=== PATIENT | male | born 1950 | race Caucasian/White ===

== ENCOUNTER 2016-08-19 07:06 | Inpatient (IN) | payer MEDICARE, OTHER ==
--- NOTE | ~2016-08-19 | EKG ---
PATIENT: KEKE OCAMPO UNIT #: [id number] Ventricular Rate: 109 BPM Atrial Rate: 109 BPM P-R Interval: 198 ms QRS Duration: 82 ms Q-T Interval: 320 ms QTC Calculation(Bezet): 430 ms P [place]: 64 degrees Calculated R [place]: 72 degrees Calculated T [place]: 68 degrees Diagnosis Line: Sinus tachycardia Diagnosis Line: Otherwise normal ECG Diagnosis Line: When compared with ECG of 23-OCT-2014 05:45, Diagnosis Line: No significant change was found Diagnosis Line: Confirmed by BRIAN WILEY MD ([id number]) on 08/20/2016 Diagnosis Line: 6:16:30 PM INTERPRETING MD: INEZ ARIZMENDI
--- NOTE | ~2016-08-19 | US85 ---
[facility] A Service of [facility] & [facility] RADIOLOGY TEXT RESULTS PATIENT: KEKE OCAMPO LOCATION: [facility] : 49 UNIT #: [id number] AGE: [address]: Catrachito Michelle MD SEX: M ORDER DR: [id number] [facility] [address] [place], [place] [address] [id number] I MR#: [id number] Acc #: [id number] NAME: KEKE OCAMPO : 1950 SEX: M STUDY DATE/TIME: 08/20/2016 8:18 UNIT: A [facility] ROOM: [facility] STUDY DESCRIPTION: US LE Veins Unilat or Ltd Stdy Attending Physician: Royce Michelle M.D. Ordering Physician: Enoch Bates M.D. Primary Care Physician: Denis Negro M.D. MEDICAL IMAGING REPORT This report is preliminary unless electronic signature is present EXAM Left lower extremity venous duplex, 08/20/2016. HISTORY Left lower extremity pain and swelling for 3 days with shortness of breath. Evaluate for deep vein thrombosis. TECHNIQUE Venous ultrasound examination of the left lower extremity was performed using grayscale, spectral Doppler and color flow Doppler imaging. FINDINGS The examination is negative. There is no evidence of left lower extremity deep venous thrombus from the groin to the lower calf. Visualized greater saphenous vein is also patent. IMPRESSION Negative examination. No evidence of left lower extremity deep venous thrombosis. Dictated by... Armando Wall M.D. THIS IS AN ELECTRONICALLY VERIFIED REPORT Armando Wall M.D. at 08/21/2016 7:34 AM VANI/austyn TD: 08/20/2016 09:57 JOB #: [id number] MEDICAL IMAGING REPORT [facility] A Service of [facility] & [facility] RADIOLOGY TEXT RESULTS PATIENT: KEKE OCAMPO LOCATION: [facility] : 49 UNIT #: [id number] AGE: [address]: Catrachito Michelle MD SEX: M ORDER DR: MARK
--- NOTE | ~2016-08-19 | CT4 ---
[facility] Service of [facility] RADIOLOGY TEXT RESULTS PATIENT: KEKE OCAMPO LOCATION: [facility] : 49 UNIT #: [id number] AGE: [address]: Catrachito Michelle MD SEX: M ORDER DR: [id number] [facility] [address] [place], [place] [address] [id number] I MR#: [id number] Acc #: [id number] NAME: KEKE OCAMPO. : 1950 SEX: M STUDY DATE/TIME: 08/19/2016 14:52 UNIT: A PCU ROOM: [facility] STUDY DESCRIPTION: CT Abd and Pelv Wo Cont Attending Physician: Royce Michelle M.D. Referring Physician: Alfred Olivera M.D. Ordering Physician: Polo Vilchis M.D. Primary Care Physician: eDnis Negro M.D. MEDICAL IMAGING REPORT This report is preliminary unless electronic signature is present EXAM CT of abdomen and pelvis without contrast. DATE OF EXAM 08/19/2016 INDICATION Generalized abdominal pain for 3 days. TECHNIQUE Axial 5 mm images were obtained from the abdomen and pelvis without IV or oral contrast. NOTE: This CT exam was performed with one or more of the following radiation dose reduction techniques: automatic exposure control, adjustment of mA and/or kV according to patient size, and iterative reconstruction. FINDINGS There is minimal left base atelectasis. The liver, gallbladder, spleen, pancreas, adrenal glands and kidneys are normal in appearance. The aorta is normal in size and there is no adenopathy. The bowel is normal. Bladder is normal. The prostate gland is normal. Degenerative changes in the lumbar spine. IMPRESSION 1. No cause for the patient's abdomen pain is identified. 2. There are degenerative changes in the lumbar spine. 3. Otherwise, the study is normal. Dictated by... Vamshi Tony M.D. [facility] A Service [facility] RADIOLOGY TEXT RESULTS PATIENT: KEKE OCAMPO LOCATION: [facility] : 49 UNIT #: [id number] AGE: [address]: Catrachito Michelle MD SEX: M ORDER DR: THIS IS AN ELECTRONICALLY VERIFIED REPORT Vamshi Tony M.D. at 08/20/2016 10:07 AM MELVIN/michael TD: 08/19/2016 17:53 JOB #: [id number] MEDICAL IMAGING REPORT COPY
--- NOTE | ~2016-08-19 | EKG ---
PATIENT: KEKE OCAMPO UNIT #: [id number] Ventricular Rate: 63 BPM Atrial Rate: 63 BPM P-R Interval: 224 ms QRS Duration: 84 ms Q-T Interval: 428 ms QTC Calculation(Bezet): 437 ms P [place]: 55 degrees Calculated R [place]: 29 degrees Calculated T [place]: 76 degrees Diagnosis Line: Sinus rhythm with 1st degree A-V block Diagnosis Line: Otherwise normal ECG Diagnosis Line: When compared with ECG of 19-AUG-2016 08:01, Diagnosis Line: (unconfirmed) Diagnosis Line: Vent. rate has decreased BY 46 BPM Diagnosis Line: Confirmed by SAJI MERA MD ([id number]) on 08/22/2016 Diagnosis Line: 5:49:11 PM INTERPRETING MD: EDE ARIZMENDI
--- NOTE | ~2016-08-19 | CO ---
Unit #: [id number] #: [id number] Patient: KEKE OCAMPO [id number] [address] [place], [place] [address] [id number] I MR#: [id number] NAME: KEKE OCAMPO. ROOM: 309 Age: 66 Sex: M Admission Date: 08/19/2016 : 1950 Attending Physician: Royce Michelle M.D. Primary Care Physician: Denis Negro M.D. Consultation Date: 08/20/2016 CONSULTATION REPORT REASON FOR CONSULTATION Elevated creatinine level. HISTORY OF PRESENT ILLNESS The patient is a 66 years old male with known history of coronary artery disease, status post RCA stent in 2014, ejection fraction of 35% to 40%, who came in with cough and noted to have positive rapid flu A. Creatinine level on admission noted to be 2.5, with the creatinine level of 1.5 in 08/2014. The patient has no noted DAVID inhibitor/ARB. Proteinuria about 1.3 g and history of diabetes. PAST MEDICAL HISTORY Significant for hypertension; chronic systolic congestive heart failure; coronary artery disease, status post RCA stent placement; type 2 diabetes; chronic kidney disease, stage 3, baseline creatinine 1.5; history of hypertension; and history of peripheral neuropathy. PAST SURGICAL HISTORY Significant for left total knee replacement, back surgery several times, right elbow surgery, eye surgery. SOCIAL HISTORY The patient has several pack years history of smoking. Does not drink. FAMILY HISTORY Unremarkable for end-stage renal disease. Positive for coronary artery disease. ALLERGIES Morphine and codeine. CURRENT MEDICATIONS Include IV Zithromax, Rocephin, Neurontin 1600 mg at night, Ativan b.i.d., Lovenox, and Ambien. REVIEW OF SYSTEMS CVS: No chest pain. RESPIRATORY: Cough with minimal expectoration. GI: No diarrhea. No vomiting. : No hematuria. No dysuria. PHYSICAL EXAMINATION GENERAL: The patient is awake, alert, and oriented. VITAL SIGNS: Temperature is 98.9, heart rate is 65 per minute, blood Unit #: [id number] #: [id number] Patient: KEKE OCAMPO pressure is 151/88. HEENT: Head is atraumatic. Extraocular movements are intact. NECK: Supple. There is no elevation of the JVD. CHEST: Has basilar crackles. HEART: S1, S2 audible. There is no S3, no S4. ABDOMEN: Soft. There is no organomegaly. No guarding. No rigidity. No rebound tenderness. EXTREMITIES: There is trace edema. LAB COURIER: Motor system is intact. Cerebellar system is intact. DIAGNOSTIC STUDIES LABORATORY RESULTS: WBC is 4.6, H and H is 14.8 and 45.5 with a platelet count of 151. The pH is 7.33, pCO2 is 54, PO2 is 206. Rapid flu influenza A is positive. Sodium is 133, potassium is 4.5, CO2 of 27, chloride 94, BUN 36, creatinine 2.5, calcium 7.8, glucose 289. Urinalysis is otherwise bland. IMPRESSION 1. Acute kidney injury possible hemodynamic related increase in creatinine, expect to stabilize with gentle hydration. Less likely acute tubular necrosis secondary to underlying infection. 2. Chronic kidney disease, stage 3 likely secondary to diabetic nephropathy with non-nephrotic range proteinuria. Once he is stable and renal function is stabilized, we will like to start him on lisinopril before discharge. 3. Hypertension. 4. Diabetes. 5. Coronary artery disease, status post right coronary artery stent placement. 6. Rapid influenza A positive. 7. Proteinuria likely secondary to diabetic nephropathy. Dictated by... Jeff Avitia M.D. RA/chely TD: 08/20/2016 22:41 JOB #: [id number] CONSULTATION REPORT X Jeff Avitia MD X CONSULTATION REPORT
--- NOTE | ~2016-08-19 | NM69 ---
[facility] A Service [facility] RADIOLOGY TEXT RESULTS PATIENT: KEKE OCAMPO LOCATION: [facility] : 49 UNIT #: [id number] AGE: [address]: Catrachito Michelle MD SEX: M ORDER DR: [id number] [facility] [address]. [place], [place] [address] [id number] I MR#: [id number] Acc #: [id number] NAME: KEKE OCAMPO : 1950 SEX: M STUDY DATE/TIME: 08/20/2016 15:45 UNIT: C3A PCU ROOM: [facility] STUDY DESCRIPTION: NM Pulm Vent and Perf Attending Physician: Royce Michelle M.D. Ordering Physician: Jose Barrett M.D. Primary Care Physician: Denis Negro M.D. MEDICAL IMAGING REPORT This report is preliminary unless electronic signature is present EXAM VQ scan INDICATIONS Elevated D-dimer level. Shortness of air. Leg swelling and fatigue. History of hypertension. History of smoking. Symptoms started about 1 year ago. FINDINGS Ventilation images were obtained after administration of 36 mCi of technetium 99m - DTPA aerosol. Corresponding perfusion images were obtained after the IV administration of 6.0 mCi of technetium 99m - MAA. COMPARISON STUDIES PA and lateral chest x-ray is obtained the same day. FINDINGS Ventilation-perfusion tracer deposition is somewhat heterogeneous, more so on the ventilation images. There is clumping of radiopharmaceutical in the larger airways on the ventilation images as well. These images have the appearance of COPD. No VQ mismatches are seen, and there are no discrete segmental perfusion defects. Study is low probability for pulmonary embolism. IMPRESSION Low probability for pulmonary embolism. Dictated by... Xavier Parrish Jr., M.D. [facility] A [facility] RADIOLOGY TEXT RESULTS PATIENT: KEKE OCAMPO LOCATION: [facility] : 49 UNIT #: [id number] AGE: [address]: Catrachito Michelle MD SEX: M ORDER DR: THIS IS AN ELECTRONICALLY VERIFIED REPORT Xavier Parrish Jr., M.D. at 08/22/2016 12:54 AM COLBY/bhargav TD: 08/20/2016 18:44 JOB #: [id number] MEDICAL IMAGING REPORT COPY
--- NOTE | ~2016-08-19 | DS ---
Unit #: [id number] #: [id number] Patient: KEKE OCAMPO [id number] [facility]. [place], [place] [address] [id number] I MR#: [id number] NAME: KEKE OCAMPO. ROOM: 309 Age: 66 Sex: M Admission Date: 08/19/2016 : 1950 Discharge Date: 08/22/2016 Attending Physician: Royce Michelle M.D. Primary Care Physician: Denis Negro M.D. DISCHARGE SUMMARY ADMITTING DIAGNOSIS Shortness of air. DISCHARGE DIAGNOSES 1. Flu A pneumonitis. 2. Acute on chronic respiratory failure. 3. Coronary artery disease. 4. Sinus tachycardia. 5. Indeterminate troponin bump. [facility] 1. Dr. Bates. 2. Dr. Jeff Avitia - Renal. 66-year-old patient known to our service with history of coronary artery disease, presented with complaints of shortness of breath, cough for approximately three days, chills, possible fever. The patient had no chest pain, palpitations, syncope. The patient had some occasional dizziness. He had chronic swelling in his left leg. He has had PND, orthopnea. The patient is having sats down to the 80s. Brought to the emergency department for further evaluation. The patient had elevated BNP, flu A positive. However, patient was given a course of Tamiflu and was admitted to the hospital. HOSPITAL COURSE Flu pneumonitis: The patient was given treatment for influenzae. He had elevated cardiac enzymes. The patient had sinus tachycardia. Cardiology was consulted. The patient is having no significant shortness of air. However, he was persistently hypoxic. The patient was put on anticoagulation. His blood pressure medications were adjusted by cardiology and patient is ready to be discharged on the fourth. DISCHARGE MEDICATIONS Include: 1. Ventolin two puffs q.i.d. and p.r.n. 2. Possibly Lovenox subcu q.24 for two to three more days. 3. Gabapentin 1600 mg at bedtime. 4. Anoro one puff daily. 5. Ambien 10 mg daily. 6. Alprazolam 0.5 to 1 mm daily p.r.n. 7. Amlodipine 10 mg daily. 8. Metoprolol 25 mg twice daily. 9. Lipitor 10 mg daily. Unit #: [id number] #: [id number] Patient: KEKE OCAMPO 10. Hydralazine 20 mg. 11. Lisinopril 10 mg daily. 12. Humulin N 70 units twice daily. 13. Sliding scale as needed. 14. Multivitamin, one tablet daily. 15. Aspirin 81 mg daily. 16. Omnicef 300 mg p.o. b.i.d. for six days. 17. Prednisone 40 mg x3 days, 30 mg x3 days, 20 mg x3 days, 10 mg x3 days. The patient is to follow up with Dr. Bates's office in two to three weeks. Follow up with our office, with Dr. Manzanares's office, in two weeks, and to follow up with Dr. Avitia within three to four weeks as previously noted. DIET Renal diet, no concentrated sweets. ACTIVITY As tolerated. Dictated by... Jimmy Teague/guido TD: 08/25/2016 11:59 JOB #: [id number] DISCHARGE SUMMARY X Catrachito Michelle MD X DISCHARGE SUMMARY
--- NOTE | ~2016-08-19 | US77 ---
[facility] A Service of [facility] & [facility] RADIOLOGY TEXT RESULTS PATIENT: KEKE OCAMPO LOCATION: [facility] - : 49 UNIT #: [id number] AGE: [address]: Catrachito Michelle MD SEX: M ORDER DR: [id number] [facility] [address]. [place], [place] [address] [id number] I MR#: [id number] Acc #: [id number] NAME: KEKE OCAMPO : 1950 SEX: M STUDY DATE/TIME: 08/20/2016 13:56 UNIT: [address] ROOM: [facility] STUDY DESCRIPTION: US Kidney Bilateral Complete Attending Physician: Royce Michelle M.D. Ordering Physician: Ed Og Vilchis M.D. Primary Care Physician: Denis Negro M.D. MEDICAL IMAGING REPORT This report is preliminary unless electronic signature is present EXAM Renal ultrasound, 08/20/2016 HISTORY Acute renal insufficiency, abnormal renal function tests today, elevated BUN of 42, elevated creatinine of 1.7, abnormally low GFR of 42.9 FINDINGS The right kidney measures 10.5 cm, while the left kidney measures 12.5 cm in longitudinal dimensions. There is no evidence of hydronephrosis or nephrolithiasis. No cystic or solid mass lesions were seen on either kidney. There is normal renal cortical echogenicity. Images of the bladder are normal. Incidental note is made of fatty infiltration of the liver. IMPRESSION 1. Negative renal ultrasound. 2. Images of the bladder are normal. 3. Incidental note is made of fatty infiltration of the liver. Dictated by... Armando Wall M.D. THIS IS AN ELECTRONICALLY VERIFIED REPORT Armando Wall M.D. at 08/21/2016 7:35 AM VANI/teresa TD: 08/20/2016 20:14 JOB #: [id number] MEDICAL IMAGING REPORT COPY
--- NOTE | ~2016-08-19 | CR63 ---
[facility] A Service of [facility] RADIOLOGY TEXT RESULTS PATIENT: KEKE OCAMPO LOCATION: [facility] 309- : [birth year] UNIT #: [id number] AGE: [address]: Catrachito Michelle MD SEX: M ORDER DR: [id number] [facility] [address]. [place], [place] [address] [id number] I MR#: [id number] Acc #: [id number] NAME: KEKE OCAMPO : 1950 SEX: M STUDY DATE/TIME: 08/20/2016 7:57 UNIT: [address] ROOM: [facility] STUDY DESCRIPTION: CR Chest 2 View Attending Physician: Royce Michelle M.D. Ordering Physician: Royce Michelle M.D. Primary Care Physician: Denis Negro M.D. MEDICAL IMAGING REPORT This report is preliminary unless electronic signature is present EXAM Chest 2 views 08/20/2016 INDICATION Flu and pneumonia in a 66-year-old male, symptoms 3 days, cough, shortness of air. Diabetic, hypertension. TECHNIQUE 2 view chest was performed and compared with 08/19/2016. FINDINGS Cardiac silhouette borderline in size and stable. Vascularity is unremarkable. No effusion, pneumothorax or dense consolidation. Calcified granulomas are present. There is thoracic spondylosis. IMPRESSION Borderline to mild cardiomegaly unchanged. No new dense consolidation, effusion or pneumothorax. Dictated by... Dima Muhammad M.D. THIS IS AN ELECTRONICALLY VERIFIED REPORT Dima Muhammad M.D. at 08/20/2016 11:46 AM SARI/otto TD: 08/20/2016 10:47 JOB #: [id number] MEDICAL IMAGING REPORT COPY
--- NOTE | ~2016-08-19 | CO ---
Unit #: [id number] #: [id number] Patient: KEKE OCAMPO [id number] [facility] [address] [place], [place] [address] [id number] I MR#: [id number] NAME: KEKE OCAMPO. ROOM: 309 Age: 66 Sex: M Admission Date: 08/19/2016 : 1950 Attending Physician: Royce Michelle M.D. Primary Care Physician: Denis Negro M.D. Consultation Date: 08/19/2016 CONSULTATION REPORT REASON FOR CONSULTATION Cardiovascular management. HISTORY OF PRESENT ILLNESS This is a 66-year-old white male, known to Dr. Bates, with a past medical history of coronary artery disease, status post cardiac catheterization on 10/22/2014 at [place] which revealed a 30% to 40% stenosis in the proximal left circumflex followed by 70% to 75% stenosis. The patient had a 30% to 40% stenosis in the mid right coronary artery and 30% stenosis in the distal right coronary artery. Acute RV branch was minimally occluded at 99%. He underwent a percutaneous coronary intervention and drug-eluting stent in the right coronary artery. Additional past medical history includes hypertension, hyperlipidemia, insulin-dependent diabetes mellitus, acute kidney injury, chronic back pain, neuropathy, and reformed tobacco abuse. The patient presented to the emergency department with complaints of shortness of breath and a cough for the last 3 days. He has had some chills and possible fever, but he did not check his temperature at home. There are no reports of chest pain, palpitations, or syncope. He has had some occasional dizziness. He reports that he has chronic swelling in his left leg, which is unchanged. He does admit to PND and orthopnea. He has not been able to sleep for the last couple of nights. EMS was dispatched due to shortness of breath. According to documentation, the patient's saturations were low in the 80s. He was brought to the emergency department for further evaluation. In the emergency department, his temperature was a 100.9, pulse 122, respirations 22, blood pressure 113/70, and O2 saturation 86% on room air. Initial labs revealed a lactic acid of 2.2. White blood cell count was 7.9. Creatinine was elevated at 2.5 with a BUN of 36. The patient's previous creatinine was 1.2 to 1.4 in 2015. BNP was normal at 58. Cardiac enzymes were mildly elevated at 0.09 and 0.14. Influenza A was positive. Chest x-ray revealed some mild vascular congestion. EKG revealed sinus tachycardia with some low voltage and poor R-wave progression in the anterior leads. He was given normal saline, Tylenol, Rocephin, Zithromax, and Tamiflu. He was admitted for influenza and possible pneumonia. Cardiology was consulted for further management. PAST MEDICAL HISTORY 1. Coronary artery disease, status post cardiac catheterization on 10/22/[address] Bates at [place], which Unit #: [id number] #: [id number] Patient: KEKE OCAMPO revealed left main normal. LAD normal. Proximal left circumflex 30% to 40%, followed by 70% to 75%. Marginal branch is normal. Mid right coronary artery 30% to 40%. Acute RV 99%. Distal right coronary artery 30%. Left ventricular ejection fraction 55%. Status post PCI and drug-eluting stent in the right coronary artery. 2. Hypertension, not currently on medications. 3. Hyperlipidemia, not currently on medications. 4. Insulin-dependent diabetes mellitus. 5. Peripheral neuropathy. 6. Acute kidney injury in 10/2014. 7. Chronic back pain. 8. Abdominal hernia. 9. Reformed tobacco abuse. PAST SURGICAL HISTORY 1. Cardiac catheterization as noted above. 2. Multiple back surgeries. 3. Left total knee replacement. 4. Eye surgery. 5. Right elbow surgery. MEDICATIONS Aspirin 81 mg p.o. daily, multivitamin 1 tablet p.o. daily, Anoro Ellipta 62.5/25 mcg inhalation daily, gabapentin need to clarify dose, Ambien 10 mg p.o. at bedtime, alprazolam 1 mg p.o. daily, Humalog sliding scale, Novolin N 70 units subcu b.i.d. before breakfast and dinner. ALLERGIES Adverse reactions to morphine and codeine. SOCIAL HISTORY The patient lives in a private residence. He is a reformed smoker and states that he quit years ago, however, according to documentation in 2014 he was listed as an active smoker. There are no reports of alcohol or illicit drug use. FAMILY HISTORY Significant for coronary artery disease and congestive heart failure. REVIEW OF SYSTEMS A 12-point review of systems negative except for details as noted above in HPI. PHYSICAL EXAMINATION VITAL SIGNS: Temperature 98.3, pulse 87, blood pressure 99/79. CONSTITUTIONAL: This is a 66-year-old white male, in no acute distress. SKIN: Warm and dry. NECK: Supple. No jugular vein distention. No hepatojugular reflux. Normal carotid upstrokes. No carotid bruits auscultated. HEART: S1 and S2. Regular rate and rhythm, but tachycardic. No murmurs, rubs, or gallops. LUNGS: Bilateral breath sounds have scattered wheezes throughout. Respirations are even and nonlabored. No rales or rhonchi. ABDOMEN: Soft, but tender at the periumbilical area. Positive bowel sounds auscultated x4 quadrants. No ascites noted. EXTREMITIES: Left lower extremity has 1+ pitting edema. Right lower extremity has no edema. DP and PT pulses are 2+. Capillary refill is less than 2 seconds. Unit #: [id number] #: [id number] Patient: KEKE OCAMPO DIAGNOSTIC STUDIES LABORATORY RESULTS: White blood cell count 7.9, hemoglobin 15.8, hematocrit 47.2, and platelets 118. Sodium 133, potassium 4.3, chloride 94, CO2 of 27, BUN 36, creatinine 2.5, glucose 389. AST 46, ALT 32, alkaline phos 60. BNP 58. Influenza A positive. Troponin 0.14 and 0.09. INR 1.0. IMAGING STUDIES: Chest x-ray is documented as normal, but upon review of film, there is some mild vascular congestion. CARDIOVASCULAR STUDIES: EKG reveals sinus tachycardia with a ventricular rate of 109 beats per minute. Low-voltage QRS. Nonspecific ST-T wave changes. Poor R-wave progression in the anterior leads. QTc 430 msec. IMPRESSION 1. Acute hypoxic respiratory failure. 2. Influenza A. 3. Rule out pneumonia. 4. Left lower extremity edema, rule out deep vein thrombosis/pulmonary embolism. 5. Abdominal pain with history of hernia. 6. Acute kidney injury. Questionably on chronic kidney disease. 7. Coronary artery disease with history of percutaneous coronary intervention and stent in the right coronary artery in 10/2014. 8. Left ventricular ejection fraction 55%. 9. Sinus tachycardia. 10. Indeterminate troponin. 11. Hypertension, now with borderline hypotension. 12. Hyperlipidemia. 13. Diabetes mellitus type 2 insulin dependent, uncontrolled. PLAN 1. The patient presented to the hospital with complaints of shortness of breath and was found to have hypoxia. 2. He was placed on a BiPAP and subsequently at 12 liter oxymizer. He was started on antibiotics, fluids, and Tamiflu for influenza and possible pneumonia. 3. Cardiology was consulted for cardiovascular management. 4. There are no complaints of chest pain. The patient is hypoxic and has wheezing, but there is no other evidence of overt failure. 5. 2D echocardiogram has been ordered at the bedside to rule out pericardial effusion, as the patient's blood pressure is borderline low. 6. There are no complaints of chest pain. Initial cardiac enzymes were mildly elevated. We will trend enzymes and EKG. 7. D-dimer will be obtained as well as a Doppler of the left lower extremity. If labs or imaging are abnormal, the patient will need a V/Q scan as tolerated. 8. He will be started on renal dose of Lovenox in the meantime. 9. We will hold all antihypertensive medications to avoid hypotension. 10. We will obtain a CT of the abdomen due to complaints of active abdominal pain. 11. We will consult Renal due to elevated creatinine. We will hold off on additional IV fluids as the patient has some mild vascular congestion. We will need to watch volume status patiently and consider diuretics as needed. Unit #: [id number] #: [id number] Patient: KEKE OCAMPO Dictated by... Heena Foreman APRN for Jimmy Teague/chely TD: 08/21/2016 03:29 JOB #: [id number] CONSULTATION REPORT X X CONSULTATION REPORT
--- NOTE | ~2016-08-19 | EKG ---
PATIENT: KEKE OCAMPO UNIT #: [id number] Ventricular Rate: 61 BPM Atrial Rate: 61 BPM P-R Interval: 208 ms QRS Duration: 86 ms Q-T Interval: 404 ms QTC Calculation(Bezet): 406 ms P [place]: 60 degrees Calculated R [place]: 35 degrees Calculated T [place]: 31 degrees Diagnosis Line: Sinus rhythm with Premature atrial complexes Diagnosis Line: Otherwise normal ECG Diagnosis Line: When compared with ECG of 20-AUG-2016 05:56, Diagnosis Line: (unconfirmed) Diagnosis Line: Premature atrial complexes are now Present Diagnosis Line: Nonspecific T wave abnormality no longer evident Diagnosis Line: in Lateral leads Diagnosis Line: Confirmed by SAJI MERA MD ([id number]) on 08/22/2016 Diagnosis Line: 6:04:05 PM INTERPRETING MD: EDE ARIZMENDI
--- NOTE | ~2016-08-19 | CR72 ---
[facility] A Service of [facility] & [facility] RADIOLOGY TEXT RESULTS PATIENT: KEKE OCAMPO LOCATION: [facility] : [birth year] UNIT #: [id number] AGE: [address]: Catrachito Michelle MD SEX: M ORDER DR: [id number] [facility] [address]. [place], [place] [address] [id number] I MR#: [id number] Acc #: [id number] NAME: KEKE OCAMPO. : 1950 SEX: M STUDY DATE/TIME: 08/19/2016 7:12 UNIT: [facility] ROOM: [id number] STUDY DESCRIPTION: CR Chest Single View Portable Attending Physician: Royce Michelle M.D. Ordering Physician: Estefany Bustamante M.D. Primary Care Physician: Denis Negro M.D. MEDICAL IMAGING REPORT This report is preliminary unless electronic signature is present EXAM Portable chest 08/19/2016 INDICATION Dyspnea for 3 days. Shortness of air. COMPARISON 09/21/2014. FINDINGS A portable view of the chest was obtained. The heart size and vascularity are normal. The lungs are clear. The bones are unremarkable. IMPRESSION No active disease. Dictated by... Vamshi Tony M.D. THIS IS AN ELECTRONICALLY VERIFIED REPORT Vamshi Tony M.D. at 08/19/2016 2:05 PM MELVIN/otto TD: 08/19/2016 10:39 JOB #: [id number] MEDICAL IMAGING REPORT COPY
[~2016-08-19 07:06] MED LIST: AMBIEN; ASPIRIN81 M2 PO; AVALIDE 300-12.1 TAB; COREG; COZAAR100 MG PO; CRESTOR PO; CYMBALTA PO; FUROSEMIDE40 MG PO; GABITRIL4 MG; GABITRIL4 MG PO; HUMALOG100 U/M1 SUBQ; HYDROCODON-ACE1 EAC9 PO; LANTUS100 U/ML; LANTUS100 U/ML SUBQ; LEXAPRO; LIPITOR; LISINOPRIL; LORCET 10/650 T1 TAB; METFORMIN; METOPROLOL TAR25 MG PO; MULTI VITAMIN1 EACH PO; NOVOLOG FL100 UNIT/1; PLAVIX PO; POTASSIUM CHLO10 ME1 PO; SYMLIN; TAMIFLU75 M1 PO; TRICOR; VITAMIN D22000 UNIT PO; ZOLPIDEM TARTRA10 MG PO
[2016-08-19 07:23] LABS: BASOPHIL# 0.1 X10e3 (0-0.3); HEMATOCRIT 47.2 % (38.0-50.0); HEMOGLOBIN 15.8 gm/dL (13.0-16.0); LYMPHOCYTE% 12.6 % (17.0-45.0); MEAN CORPUSCULAR HEMOGLOBIN 30.5 PG (28-34); MEAN CORPUSCULAR HGB CONC 33.5 g/dL (30-36); MEAN PLATELET VOLUME 9.6 FL (6.5-11.5); MONOCYTE# 1.5 X10e3 (0-1.0); MONOCYTE% 18.5 % (3.0-12.0); NEUTROPHIL# 5.4 X10e3 (1.5-7.1); NEUTROPHIL% 67.9 % (40-75); PLATELET COUNT 118 X10e3 (140-420); RED BLOOD COUNT 5.19 X10e (3.90-5.60); RED CELL DISTRIBUTION WIDTH 13.7 % (11.0-15.5); WHITE BLOOD COUNT 7.9 X10e3 (4.0-10.5)
[2016-08-19 07:26] LABS: ARTERIAL BLD GAS O2 SATURATION 99.1 % (90.0-100.0); ARTERIAL BLOOD GAS CARBOXY HB 0.5 %sat (0.0-9.0); ARTERIAL BLOOD GAS HCO3 25.6 mmol/L; ARTERIAL BLOOD GAS MET HB 0.5 %sat (0.0-2.0); ARTERIAL BLOOD GAS PCO2 39.9 mmHg (35.0-45.0); ARTERIAL BLOOD GAS pH 7.416 (7.350-7.450)
[2016-08-19 07:28] LABS: ARTERIAL BLOOD GAS ALLEN TEST Y; ARTERIAL BLOOD GAS ART SITE LEFT RADIAL; ARTERIAL BLOOD GAS DELIVERY BIPAP; ARTERIAL DRAW? YES
[2016-08-19 07:28] LABS: DIFF IND NO
[2016-08-19 07:37] LABS: PARTIAL THROMBOPLASTIN TIME 28.6 SECONDS (23.5-31.3); PROTHROMBIN TIME (PATIENT) 10.6 SECONDS (9.6-11.5)
[2016-08-19 08:03] LABS: ALBUMIN SERUM 3.1 g/dL (3.5-5.0); BILIRUBIN, DIRECT 0.2 mg/dL (0.0-0.2); BILIRUBIN,INDIRECT 0.4 mg/dL (0.0-0.9); BILIRUBIN,TOTAL 0.6 mg/dL (0.2-2.0); BUN/CREATININE RATIO 14.4; CALCIUM SERUM 7.8 mg/dL (8.4-10.2); CREATININE SERUM 2.5 mg/dL (0.6-1.4); GLOM FILT RATE Estimated 27.5 mL/min (>60); POTASSIUM 4.3 mmol/L (3.5-5.1); PROTEIN TOTAL SERUM 6.7 g/dL (6.0-8.3)
[2016-08-19 08:07] LABS: POC - CKMB 3.3 ng/mL (0.0-7.9); POC - TROPONIN 0.14 ng/mL (<=0.05)
[2016-08-19] MEDS ORDERED: ASPIRIN81 MG PO (08:13)
[2016-08-19] MEDS ORDERED: ANORO ELLIPTA1 EACH INH (08:14)
[2016-08-19] MEDS ORDERED: AMBIEN10 MG PO (08:14)
[2016-08-19] MEDS ORDERED: MULTI VITAMIN1 EACH PO (08:14)
[2016-08-19] MEDS ORDERED: GABAPENTIN800 MG PO (08:14)
[2016-08-19] MEDS ORDERED: HUMALOG100 U/ML (08:15)
[2016-08-19] MEDS ORDERED: ALPRAZOLAM1 MG PO (08:15)
[2016-08-19] MEDS ORDERED: NOVOLIN N100 UNIT/1 SUBQ (08:16)
[2016-08-19 08:19] LABS: INFLUENZA A POS (NEG); INFLUENZA B NEG (NEG)
[2016-08-19 09:32] LABS: POC - CKMB 2.8 ng/mL (0.0-7.9); POC - TROPONIN 0.09 ng/mL (<=0.05)
[2016-08-19 19:41] LABS: %MB 0.4 % (0.0-4.0); MB 6.3 ng/ml
[2016-08-20 00:26] LABS: URINE APPEARANCE CLEAR; URINE BILIRUBIN NEG (NEG); URINE BLOOD 2+ (NEG); URINE COLOR YELLOW; URINE GLUCOSE >1000 MG/DL (NEG); URINE KETONE TRACE (NEG); URINE LEUKOCYTE ESTERASE NEG (NEG); URINE NITRATE NEG (NEG); URINE PROTEIN 2+ (NEG); URINE UROBILINOGEN 0.2 MG/DL (NEG)
[2016-08-20 00:29] LABS: U HYALINE CASTS AUWI 0-2 /[LPF]; URBCS1 AUWI 0-2 /[HPF] (0-2); URINE BACTERIA AUWI NEG (NEGATIVE); URINE SQUAMOUS EPITHELIAL CELL NONE SEEN /[HPF]; UWBCS1 AUWI 0-2 (0-5)
[2016-08-20 00:30] LABS: CULTURE INDICATED? NO
[2016-08-20 00:52] LABS: CREATININE,RANDOM URINE 58 mg/dL; SODIUM URINE RANDOM 30 mmol/L
[2016-08-20 01:10] LABS: TOTAL PROTEIN,RANDOM URINE 87 mg/dl (<10)
[2016-08-20 03:14] LABS: %MB 0.6 % (0.0-4.0); MB 10.1 ng/ml
[2016-08-20 04:46] LABS: ARTERIAL BLOOD GAS CARBOXY HB 0.1 %sat (0.0-9.0); ARTERIAL BLOOD GAS HCO3 28.5 mmol/L; ARTERIAL BLOOD GAS MET HB 0.6 %sat (0.0-2.0)
[2016-08-20 05:17] LABS: ARTERIAL BLOOD GAS ART SITE LEFT BRACHIAL; ARTERIAL BLOOD GAS PCO2 54.1 mmHg (35.0-45.0); ARTERIAL DRAW? YES
[2016-08-20 07:38] LABS: BASOPHIL# 0.1 X10e3 (0-0.3); BASOPHIL% 1.2 % (0-2.5); HEMATOCRIT 45.5 % (38.0-50.0); HEMOGLOBIN 14.8 gm/dL (13.0-16.0); LYMPHOCYTE# 0.9 X10e3 (1.0-3.5); LYMPHOCYTE% 18.5 % (17.0-45.0); MEAN CELL VOLUME 92.4 FL (83-96); MEAN CORPUSCULAR HEMOGLOBIN 30.2 PG (28-34); MEAN CORPUSCULAR HGB CONC 32.6 g/dL (30-36); MEAN PLATELET VOLUME 8.3 FL (6.5-11.5); MONOCYTE# 0.6 X10e3 (0-1.0); MONOCYTE% 13.6 % (3.0-12.0); NEUTROPHIL# 3.1 X10e3 (1.5-7.1); NEUTROPHIL% 66.7 % (40-75); PLATELET COUNT 151 X10e3 (140-420); RED BLOOD COUNT 4.92 X10e (3.90-5.60); RED CELL DISTRIBUTION WIDTH 13.7 % (11.0-15.5); WHITE BLOOD COUNT 4.6 X10e3 (4.0-10.5)
[2016-08-20 07:45] LABS: DIFF IND NO
[2016-08-20 08:38] LABS: BUN/CREATININE RATIO 24.7; CALCIUM SERUM 7.3 mg/dL (8.4-10.2); CREATININE SERUM 1.7 mg/dL (0.6-1.4); GLOM FILT RATE Estimated 42.9 mL/min (>60); POTASSIUM 5.1 mmol/L (3.5-5.1)
[2016-08-21 12:12] LABS: BASOPHIL# 0.1 X10e3 (0-0.3); EOSINOPHIL# 0.1 X10e3 (0-0.7); EOSINOPHIL% 2.6 % (0.0-7.0); HEMATOCRIT 45.6 % (38.0-50.0); HEMOGLOBIN 15.1 gm/dL (13.0-16.0); LYMPHOCYTE# 1.2 X10e3 (1.0-3.5); LYMPHOCYTE% 22.3 % (17.0-45.0); MEAN CELL VOLUME 91.2 FL (83-96); MEAN CORPUSCULAR HEMOGLOBIN 30.2 PG (28-34); MEAN CORPUSCULAR HGB CONC 33.1 g/dL (30-36); MEAN PLATELET VOLUME 9.4 FL (6.5-11.5); MONOCYTE# 0.6 X10e3 (0-1.0); MONOCYTE% 12.4 % (3.0-12.0); NEUTROPHIL# 3.2 X10e3 (1.5-7.1); NEUTROPHIL% 61.7 % (40-75); RED BLOOD COUNT 5.01 X10e (3.90-5.60); RED CELL DISTRIBUTION WIDTH 13.6 % (11.0-15.5); WHITE BLOOD COUNT 5.2 X10e3 (4.0-10.5)
[2016-08-21 12:33] LABS: CALCIUM SERUM 8.2 mg/dL (8.4-10.2); CREATININE SERUM 1.5 mg/dL (0.6-1.4); GLOM FILT RATE Estimated 49.6 mL/min (>60); POTASSIUM 4.7 mmol/L (3.5-5.1)
[2016-08-21 12:44] LABS: DIFF IND YES
[2016-08-21 12:46] LABS: PLATELET ESTIMATE DECREASED (NORMAL)
[2016-08-21 12:47] LABS: RBC NORMAL YES
[2016-08-22 05:48] LABS: HEMATOCRIT 45.2 % (38.0-50.0); HEMOGLOBIN 14.9 gm/dL (13.0-16.0); MEAN CELL VOLUME 90.7 FL (83-96); MEAN PLATELET VOLUME 8.7 FL (6.5-11.5); RED BLOOD COUNT 4.98 X10e (3.90-5.60); RED CELL DISTRIBUTION WIDTH 13.2 % (11.0-15.5); WHITE BLOOD COUNT 3.8 X10e3 (4.0-10.5)
[2016-08-22 07:25] LABS: BUN/CREATININE RATIO 21.42; CALCIUM SERUM 8.6 mg/dL (8.4-10.2); CREATININE SERUM 1.4 mg/dL (0.6-1.4); GLOM FILT RATE Estimated 53.7 mL/min (>60)
[2016-08-22 07:49] LABS: POTASSIUM 5.5 mmol/L (3.5-5.1)
[2016-08-22] MEDS ORDERED: ANORO ELLIPTA1 EACH INH (16:20)
[2016-08-22] MEDS ORDERED: PREDNISOLONE5 MG PO (16:21)
[2016-08-22] MEDS ORDERED: OMNICEF300 MG PO (16:22)
[2016-08-22] MEDS ORDERED: LISINOPRIL10 MG PO (16:22)
[2016-08-22] MEDS ORDERED: LIPITOR20 MG PO (16:24)
[2016-08-22] MEDS ORDERED: METOPROLOL TART25 MG PO (16:24)
[2016-08-22] MEDS ORDERED: NORVASC10 MG PO (16:24)
[2016-08-22] MEDS ORDERED: ALBUTEROL17 GM INH (16:26)
[2016-08-22 17:45] LABS: BLOOD UREA NITROGEN 33 mg/dL (9-23); CALCIUM SERUM 8.4 mg/dL (8.4-10.2); CARBON DIOXIDE 27 mmol/L (22-31); CHLORIDE 97 mmol/L (100-111); CREATININE SERUM 1.2 mg/dL (0.6-1.4); GLOM FILT RATE Estimated ABOVE60 mL/min (>60); GLUCOSE FASTING 411 mg/dL (70-110); POTASSIUM 4.4 mmol/L (3.5-5.1)
[2016-08-22 17:47] LABS: SODIUM 130 mmol/L (135-145)
[2016-08-22 19:24] LABS: SPE A1GLOB (PNL) 0.4 g/dL (0.2-0.3); SPE A2GLOB (PNL) 1.1 g/dL (0.5-0.9); SPE ALB (PNL) 2.6 g/dL (3.8-4.8); SPE BETA 1 GLOBULIN 0.3 g/dL (0.4-0.6); SPE BETA 2 GLOBULIN 0.4 g/dL (0.2-0.5); SPE GAMMA (PNL) 0.8 g/dL (0.8-1.7); SPETP (PNL) 5.5 g/dL (6.1-8.1)
[2016-08-23 14:55] LABS: UPE RAND ALPHA1 GLOB 6 % (()); UPE RAND PROT/CREAT 3176 (22-128); UPE RANDOM ALB (PNL) 69 % (()); UPE RANDOM ALPHA 2 GLOB 5 % (()); UPE RANDOM BETA GLOB 9 % (()); UPE RANDOM CREATININE 74.3 mg/dL (20-370); UPE RANDOM GAMMA GLOB 10 % (()); UPE RANDOM TOTAL PROTEIN (PNL) 236 mg/dL (5-25)
[2016-08-26 12:36] LABS: HISTO AG URINE SPECIMEN Urine (())
== END 2016-08-22 18:07 | disposition home or self-care (01) | DRG 193 ==
LOC: CED 07:06 → CEDOF 08:45 → C3A PCU 17:51
PROVIDERS: Emergency Medicine; Internal Medicine Nephrology; Internal Medicine Pulmonary Disease; Nurse Practitioner Family
DX: J11.00 Influenza due to unidentified influenza virus with unspecified type of pneumonia (principal); J96.21 Acute and chronic respiratory failure with hypoxia; N17.9 Acute kidney failure, unspecified; I13.0 Hypertensive heart and chronic kidney disease with heart failure and stage 1 through stage 4 chronic kidney disease, or unspecified chronic kidney disease; I50.22 Chronic systolic (congestive) heart failure; I25.10 Atherosclerotic heart disease of native coronary artery without angina pectoris; Z95.5 Presence of coronary angioplasty implant and graft; E11.21 Type 2 diabetes mellitus with diabetic nephropathy; E11.22 Type 2 diabetes mellitus with diabetic chronic kidney disease; N18.3 Chronic kidney disease, stage 3 (moderate); E78.5 Hyperlipidemia, unspecified; G62.9 Polyneuropathy, unspecified; R80.9 Proteinuria, unspecified; R00.0 Tachycardia, unspecified; Z82.49 Family history of ischemic heart disease and other diseases of the circulatory system; Z79.82 Long term (current) use of aspirin; Z79.4 Long term (current) use of insulin; Z96.652 Presence of left artificial knee joint; E87.5 Hyperkalemia; E66.9 Obesity, unspecified; J20.8 Acute bronchitis due to other specified organisms
CPT/HCPCS: 36415; 36600; 71010; 71020; 74176; 76770; 78582; 80048; 80061; 80076; 81003; 82550; 82553; 82570; 82803; 82947; 83605; 83880; 84132; 84156; 84165; 84166; 84300; 84443; 84484; 85025; 85027; 85379; 85610; 85730; 86335; 87040; 87070; 87385; 87633; 87804; 89190; 93005; 93306; 93971; 94640; 94660; 94760; 96365; 96371; 99285; A9540; A9567; J0456; J0696; J1650; J1815; J2920

== ENCOUNTER 2017-01-23 15:27 | Emergency (ER) | payer MEDICARE, OTHER ==
--- NOTE | ~2017-01-23 | EKG ---
PATIENT: KEKE OCAMPO UNIT #: [id number] Ventricular Rate: 77 BPM Atrial Rate: 77 BPM P-R Interval: 190 ms QRS Duration: 90 ms Q-T Interval: 394 ms QTC Calculation(Bezet): 445 ms P [place]: 40 degrees Calculated R [place]: 56 degrees Calculated T [place]: 52 degrees Diagnosis Line: Normal sinus rhythm Diagnosis Line: Normal ECG Diagnosis Line: When compared with ECG of 22-AUG-2016 07:48, Diagnosis Line: Premature atrial complexes are no longer Present Diagnosis Line: Confirmed by SAJI MERA MD ([id number]) on 01/26/2017 Diagnosis Line: 7:00:49 AM INTERPRETING MD: EDE ARIZMENDI
--- NOTE | ~2017-01-23 | CR72 ---
[facility] A Service of [facility] RADIOLOGY TEXT RESULTS PATIENT: KEKE OCAMPO LOCATION: [facility] : [birth year] UNIT #: [id number] AGE: [address]: Tomy Valadez MD SEX: M ORDER DR: [id number] [facility] [address] [place], [place] [address] [id number] E MR#: [id number] Acc #: [id number] NAME: KEKE OCAMPO. : 1950 SEX: M STUDY DATE/TIME: 01/23/2017 16:30 UNIT: [facility] ROOM: STUDY DESCRIPTION: CR Chest Single View Portable Attending Physician: Tomy Valadez M.D. Ordering Physician: Tomy Valadez M.D. Primary Care Physician: No Primary Care Physician MEDICAL IMAGING REPORT This report is preliminary unless electronic signature is present EXAM Portable chest HISTORY A 66-year-old male with left leg weakness left arm weakness, difficulty speaking, onset today. COMPARISON 08/20/2016 FINDINGS Portable view chest demonstrates cardiomegaly. Prominence of the pulmonary vascular interstitium with peribronchial cuffing and some probable per Dung B lines could reflect underlying CHF. This could also represent background interstitial disease and fibrosis though does appear new or increased from August study. No dense consolidation identified. Probable small right pleural effusion. Mild cardiomegaly. Mediastinum, great vessels unremarkable. Postsurgical changes of the lower cervical spine. No pneumothorax. Dictated by... Clarke Huang M.D. THIS IS AN ELECTRONICALLY VERIFIED REPORT Clarke Huang M.D. at 01/23/2017 9:39 PM VIOLET/bhargav TD: 01/23/2017 19:03 JOB #: [id number] MEDICAL IMAGING REPORT [facility] A Service [facility] RADIOLOGY TEXT RESULTS PATIENT: KEKE OCAMPO LOCATION: [facility] : [birth year] UNIT #: [id number] AGE: [address]: Tomy Valadez MD SEX: M ORDER DR: Page 1 of 1 COPY
--- NOTE | ~2017-01-23 | CT18 ---
[facility] A Service [facility] RADIOLOGY TEXT RESULTS PATIENT: KEKE OCAMPO LOCATION: [facility] : 49 UNIT #: [id number] AGE: [address]: Tomy Valadez MD SEX: M ORDER DR: [id number] [facility] [address] [place], [place] [address] [id number] E MR#: [id number] [facility] #: [id number] NAME: KEKE OCAMPO. : 1950 SEX: M STUDY DATE/TIME: 01/23/2017 15:52 UNIT: [facility] ROOM: STUDY DESCRIPTION: CT Angio Head Stroke Attending Physician: Tomy Valadez M.D. Ordering Physician: Tomy Valadez M.D. Primary Care Physician: No Primary Care Physician MEDICAL IMAGING REPORT This report is preliminary unless electronic signature is present EXAM CT angiogram of head and neck with IV contrast. HISTORY Left side weakness and aphasia today. TECHNIQUE This CT exam was performed with one or more of the following radiation dose reduction techniques: automatic exposure control, adjustment of mA and/or kV according to patient size, and iterative reconstruction. FINDINGS IV contrast enhanced CT angiogram of the head and neck was performed with 3-D reconstructions. CT ANGIOGRAM NECK: Moderate partly calcified atherosclerotic plaque in the proximal mid and distal left common carotid artery with up to 60% luminal diameter stenosis. Mild calcified atherosclerotic plaque in the carotid bulbs and proximal internal carotid arteries bilaterally with approximately 40% stenosis in the proximal right internal carotid artery by NASCET criteria, and less than 20% stenosis in the proximal left internal carotid artery. Both vertebral arteries are patent with no focal stenosis identified. Multilevel degenerative and postoperative changes in the cervical spine. CT ANGIOGRAM BRAIN: The intracranial internal carotid arteries are patent with only mild atherosclerotic calcified plaque in the cavernous carotid arteries bilaterally. The intracranial vertebral arteries and basilar artery are also widely patent. The anterior cerebral, middle cerebral and posterior cerebral arteries are patent with no focal stenosis. Tiny right posterior communicating artery. No aneurysm or vascular malformation is identified. No major vessel occlusion. [facility] A Service [facility] RADIOLOGY TEXT RESULTS PATIENT: KEKE OCAMPO LOCATION: [facility] #: [id number] : [birth year] UNIT #: [id number] AGE: [address]: Tomy Valadez MD SEX: M ORDER DR: IMPRESSION 1. No major intracranial arterial stenosis or occlusion. 2. Approximately 60% maximal stenosis in the left common carotid artery secondary to partly calcified atherosclerotic plaque. 3. Approximately 40% stenosis in the proximal right internal carotid artery by NASCET criteria. 4. Both vertebral arteries are patent with no focal stenosis. 5. Incidental very small right posterior communicating artery. Dictated by... Graham Caceres M.D. THIS IS AN ELECTRONICALLY VERIFIED REPORT Graham Caceres M.D. at 01/23/2017 8:43 PM KENDRA/michael TD: 01/23/2017 19:16 JOB #: [id number] MEDICAL IMAGING REPORT Page 1 of 1 COPY
--- NOTE | ~2017-01-23 | CT24 ---
[facility] A Service of [facility] RADIOLOGY TEXT RESULTS PATIENT: KEKE OCAMPO LOCATION: [facility] : [birth year] UNIT #: [id number] AGE: [address]: Tomy Valadez MD SEX: M ORDER DR: [id number] [facility] [address] [place], [place] [address] [id number] E MR#: [id number] Acc #: [id number] NAME: KEKE OCAMPO : 1950 SEX: M STUDY DATE/TIME: 01/23/2017 15:52 UNIT: [facility] ROOM: STUDY DESCRIPTION: CT Angio Neck Stroke Attending Physician: Tomy Valadez M.D. Ordering Physician: Tomy Valadez M.D. Primary Care Physician: No Primary Care Physician MEDICAL IMAGING REPORT This report is preliminary unless electronic signature is present EXAM CT angiogram of the neck with IV contrast. HISTORY Left side weakness and aphasia today. TECHNIQUE This CT exam was performed with one or more of the following radiation dose reduction techniques: automatic exposure control, adjustment of mA and/or kV according to patient size, and iterative reconstruction. FINDINGS Please see CTA head neck performed 01/23/2017 for results. Dictated by... Graham Caceres M.D. THIS IS AN ELECTRONICALLY VERIFIED REPORT Graham Caceres M.D. at 01/23/2017 8:45 PM KENDRA/michael TD: 01/23/2017 19:21 JOB #: [id number] MEDICAL IMAGING REPORT Page 1 of 1 COPY
--- NOTE | ~2017-01-23 | CT72 ---
[facility] A Service [facility] RADIOLOGY TEXT RESULTS PATIENT: KEKE OCAMPO LOCATION: [facility] : 49 UNIT #: [id number] AGE: [address]: Tomy Valadez MD SEX: M ORDER DR: [id number] [facility] [address] [place], [place] [address] [id number] E MR#: [id number] Acc #: [id number] NAME: KEKE OCAMPO : 1950 SEX: M STUDY DATE/TIME: 01/23/2017 15:39 UNIT: [facility] ROOM: STUDY DESCRIPTION: CT Head Wo Contrast Stroke Attending Physician: Tomy Valadez M.D. Ordering Physician: Tomy Valadez M.D. Primary Care Physician: No Primary Care Physician MEDICAL IMAGING REPORT This report is preliminary unless electronic signature is present EXAM Head CT, 01/23 at 15:39 INDICATIONS Left side weakness, aphasia that started at 02:20 this afternoon. Fall 4 days ago. FINDINGS Axial images were obtained from the base to the vertex without contrast. No comparison. This CT exam was performed with one or more of the following radiation dose reduction techniques: automatic exposure control, adjustment of mA and/or kV according to patient size, and iterative reconstruction. The study is motion degraded. No evidence of acute infarct or hemorrhage. No masses. No skull fracture. There is atherosclerotic disease in the carotid siphons. There are mucous retention cysts with chronic mucosal thickening in the maxillary sinuses. IMPRESSION No acute findings in the brain. Chronic changes in the maxillary sinuses. Dictated by... Xavier Parrish Jr., M.D. THIS IS AN ELECTRONICALLY VERIFIED REPORT Xavier Parrish Jr., M.D. at 01/24/2017 8:38 AM COLBY/bhargav TD: 01/23/2017 18:14 [facility] A Service of [facility] RADIOLOGY TEXT RESULTS PATIENT: KEKE OCAMPO LOCATION: [facility] : 49 UNIT #: [id number] AGE: [address]: Tomy Valadez MD SEX: M ORDER DR: JOB #: [id number] MEDICAL IMAGING REPORT Page 1 of 1 COPY
[~2017-01-23 15:27] MED LIST changes: +ALBUTEROL17 GM INH; +ALPRAZOLAM1 MG PO; +AMBIEN10 MG PO; +ANORO ELLIPTA1 EACH INH; +ASPIRIN81 MG PO; +GABAPENTIN800 MG PO; +HUMALOG100 U/ML; +LIPITOR20 MG PO; +LISINOPRIL10 MG PO; +METOPROLOL TART25 MG PO; +NORVASC10 MG PO; +NOVOLIN N100 UNIT/1 SUBQ; +OMNICEF300 MG PO; +PREDNISOLONE5 MG PO
[2017-01-23 16:09] LABS: INR 0.9; PARTIAL THROMBOPLASTIN TIME 26.3 SECONDS (23.5-31.3); PROTHROMBIN TIME (PATIENT) 10.3 SECONDS (10.0-11.7)
[2017-01-23 16:10] LABS: BASOPHIL# 0.2 X10e3 (0-0.3); BASOPHIL% 2.8 % (0-2.5); DIFF IND NO; EOSINOPHIL# 0.4 X10e3 (0-0.7); EOSINOPHIL% 7.4 % (0.0-7.0); HEMATOCRIT 44.1 % (38.0-50.0); HEMOGLOBIN 14.4 gm/dL (13.0-16.0); LYMPHOCYTE# 1.5 X10e3 (1.0-3.5); LYMPHOCYTE% 25.1 % (17.0-45.0); MEAN CELL VOLUME 92.2 FL (83-96); MEAN CORPUSCULAR HGB CONC 32.5 g/dL (30-36); MEAN PLATELET VOLUME 8.1 FL (6.5-11.5); MONOCYTE# 0.6 X10e3 (0-1.0); MONOCYTE% 10.9 % (3.0-12.0); NEUTROPHIL# 3.1 X10e3 (1.5-7.1); NEUTROPHIL% 53.8 % (40-75); PLATELET COUNT 198 X10e3 (140-420); RED BLOOD COUNT 4.79 X10e (3.90-5.60); WHITE BLOOD COUNT 5.8 X10e3 (4.0-10.5)
[2017-01-23 16:16] LABS: POC - CREATININE 1.39 mg/dL (0.64-1.27)
[2017-01-23 16:24] LABS: ALBUMIN SERUM 3.8 g/dL (3.5-5.0); BILIRUBIN, DIRECT 0.1 mg/dL (0.0-0.2); BILIRUBIN,INDIRECT 0.4 mg/dL (0.0-0.9); BILIRUBIN,TOTAL 0.5 mg/dL (0.2-2.0); BUN/CREATININE RATIO 16.52; CALCIUM SERUM 8.9 mg/dL (8.4-10.2); CREATININE SERUM 2.3 mg/dL (0.6-1.4); GLOM FILT RATE Estimated 28.3 mL/min (>60); POTASSIUM 4.5 mmol/L (3.5-5.1)
[2017-01-23 16:32] LABS: POC - CKMB 5.2 ng/mL (0.0-7.9); POC - TROPONIN <0.05 ng/mL (<=0.05)
[2017-01-23 17:34] LABS: POC - CKMB 5.6 ng/mL (0.0-7.9); POC - TROPONIN <0.05 ng/mL (<=0.05)
== END 2017-01-23 18:26 | disposition home or self-care (01) ==
LOC: CED 15:27
PROVIDERS: Emergency Medicine
DX: I13.0 Hypertensive heart and chronic kidney disease with heart failure and stage 1 through stage 4 chronic kidney disease, or unspecified chronic kidney disease (principal); E11.22 Type 2 diabetes mellitus with diabetic chronic kidney disease; N18.9 Chronic kidney disease, unspecified; I50.9 Heart failure, unspecified; Z86.73 Personal history of transient ischemic attack (TIA), and cerebral infarction without residual deficits; Z79.82 Long term (current) use of aspirin; Z79.4 Long term (current) use of insulin; Z79.899 Other long term (current) drug therapy
CPT/HCPCS: 36415; 70450; 70496; 70498; 71010; 80048; 80076; 82553; 82565; 82947; 84484; 85025; 85610; 85730; 93005; 96360; 99285; Q9967

== ENCOUNTER → 2017-02-12 | Outpatient (CLI) | payer MEDICARE, OTHER ==
--- NOTE | ~2017-02-12 | US5 ---
[facility] A Service of [facility] RADIOLOGY TEXT RESULTS PATIENT: ALBERTO OCAMPO LOCATION: [facility] : 49 UNIT #: [id number] AGE: [address]: Bonnie Fuchs APRN SEX: M ORDER DR: [id number] [facility] [address] [place], [place] [address] [id number] O MR#: [id number] Acc #: [id number] NAME: ALBERTO OCAMPO : 1950 SEX: M STUDY DATE/TIME: 02/12/2017 9:12 UNIT: [facility] ROOM: STUDY DESCRIPTION: US Abdominal Complete Attending Physician: Bonnie Fuchs A.P.R.N. Referring Physician: Bonnie Fuchs A.P.R.N. Ordering Physician: Bonnie Fuchs A.P.R.N. Primary Care Physician: Margret Primary Care Physician MEDICAL IMAGING REPORT This report is preliminary unless electronic signature is present EXAM Ultrasound of the abdomen. INDICATIONS Abdominal distension for years not associated with any pain. Patient was noted to have mild lumps in the right upper quadrant and above the umbilicus on physical exam. TECHNIQUE Ferguson-scale, color Doppler and spectral Doppler waveform analysis was performed through the abdomen including the area of concern appeared to the umbilicus. FINDINGS The patient's liver does appear enlarged measuring up to 18.6 cm in craniocaudal dimensions, although I don't see any evidence of intra or extrahepatic biliary dilatation. No focal hepatic lesions are seen. No definite hepatic steatosis is identified. There is limited visualization of the aorta. Visualized segment measures up to about 2.7 cm in diameter, which is larger than on a prior CT from August of 2016. I suspect the discrepancy is probably due to differences in technique. Inferior vena cava appears to be patent, pancreas cannot be seen due to overlying bowel gas. Both kidneys are normal in appearance. No solid or cystic renal masses are seen and there is no hydronephrosis. No stones or sludge are seen within the gallbladder. The spleen appears within normal limits. Images through the area of concern do appear to show a bowel containing supraumbilical hernia. On prior study, patient did have a small fat-containing umbilical hernia, but again no bowel was seen within it. IMPRESSION 1. Within the area concern, the patient does appear to have a bowel-containing ventral hernia. Patient did have a small umbilical hernia on prior CT from August 19, 2016, but it did not contain any STS. [facility] A Service of [facility] RADIOLOGY TEXT RESULTS PATIENT: ALBERTO OCAMPO LOCATION: [facility] : 48 UNIT #: [id number] AGE: [address]: Bonnie Fuchs APRN SEX: M ORDER DR: bowel at that time. Certainly CT would be more sensitive for evaluation of any abdominal wall defects. 2. Hepatomegaly. 3. Demo Specialist measures the aorta at up to 2.7 cm in diameter within the mid portion. This is larger than on the prior study. I suspect it is probably related to the exam technique, but certainly would be better assessed again with CT. Dictated by... Love Santiago M.D. THIS IS AN ELECTRONICALLY VERIFIED REPORT Love Santiago M.D. at 02/24/2017 8:13 AM THIAGO/michael TD: 02/12/2017 23:26 JOB #: [id number] MEDICAL IMAGING REPORT Page 1 of 1 COPY
== END | disposition home or self-care (01) ==
LOC: CGUS 08:41
DX: K42.9 Umbilical hernia without obstruction or gangrene (principal); R16.0 Hepatomegaly, not elsewhere classified
CPT/HCPCS: 76700